=== PATIENT | female | born 1965 | race Caucasian/White ===

== ENCOUNTER 2016-10-19 18:46 | Emergency (ER) | payer OTHER ==
[~2016-10-19] VITALS: Ht 149.9 cm; Wt 45.0 kg
[~2016-10-19 18:46] MED LIST: ZOFR4TAB3 SL
[2016-10-19 18:48] VITALS: BP 103/66; PULSE 99; RESP 14; TEMP 101.7; O2SAT 96
[2016-10-19] MEDS ORDERED: OSEL75 PO (19:44)
[2016-10-19] MEDS ORDERED: AZIT250T3 PO (19:44)
[2016-10-19] MEDS: ALBUTEROL SULFATE 90 MCG/ACT HFA 8 GM INHALER INH ONE ×2 (19:45→20:02)
[2016-10-19] MEDS ORDERED: IBUPROFEN 600 MG TAB PO ONE (19:45)
[2016-10-19] MEDS ORDERED: AZITHROMYCIN 250 MG TAB PO ONE (19:45)
[2016-10-19] MEDS ORDERED: OSELTAMIVIR PHOSPHATE 75 MG CAP PO ONE (19:45)
--- NOTE | 2016-10-19 19:45 | PD ---
HPI Chief Complaint: Cold / Flu Symptoms Time Seen by Provider: 19:25 Travel History International Travel<30 days: No Contact w/Intl Traveler<30days: No Traveled to known affect area: No History of Present Illness HPI 51-year-old female arrives following about 12 hours of fever and chills. She's had a productive cough. She describes a headache. She notes her sister and her son have the flu. Her sister has a pneumonia. Her symptoms began after she left here having visited with here with her son. She's had no vomiting. Severity is moderate. PFSH Past Medical History Immunizations Current: Yes ?: Not : 4 Para: 2 Miscarriage: 1 : 1 Past Surgical History Eye Surgery: Yes ( AGE 7 ) Social History Alcohol Use: Yes (OCC) Tobacco Use: Yes (PK/DAY) Substance Use: Yes (MARIJUANA OCC) Allergies-Medications (Allergen,Severity, Reaction): Coded Allergies: Biaxin (Verified Allergy, Intermediate, 10/19/16) Reported Meds & Prescriptions Reported Meds & Active Scripts Active Azithromycin 250 Mg Tab 250 Mg PO DAILY 4 Days Tamiflu (Oseltamivir Phosphate) 75 Mg Cap 75 Mg PO BID 5 Days Review of Systems Except as stated in HPI: all other systems reviewed are Neg General / Constitutional: Positive: Fever Respiratory: Positive: Cough Physical Exam Narrative GENERAL: 51-year-old female pleasant no acute distress speaking full sentences SKIN: Focused skin assessment warm/dry. HEAD: Atraumatic. Normocephalic. EYES: Pupils equal and round. No scleral icterus. No injection or drainage. ENT: No nasal bleeding or discharge. Mucous membranes pink and moist. Posterior oropharynx widely patent. NECK: Trachea midline. No JVD. CARDIOVASCULAR: Regular rate and rhythm. No murmur appreciated. RESPIRATORY: No accessory muscle use. Clear to auscultation. Breath sounds equal bilaterally. Trace occasional expiratory wheeze. GASTROINTESTINAL: Abdomen soft, non-tender, nondistended. Hepatic and splenic margins not palpable. MUSCULOSKELETAL: No obvious deformities. No clubbing. No cyanosis. No edema. NEUROLOGICAL: Awake and alert. No obvious cranial nerve deficits. Motor grossly within normal limits. Normal speech. PSYCHIATRIC: Appropriate mood and affect; insight and judgment normal. Data Data Last Documented VS Vital Signs Date Time Temp Pulse Resp B/P Pulse Ox O2 Delivery O2 Flow Rate FiO2 10/19/16 19:07 20 10/19/16 18:48 101.7 99 103/66 96 Vital signs reviewed Orders Influenzae A/B Antigen (10/19/16 19:03) Oseltamivir (Tamiflu) (10/19/16 19:45) Ibuprofen (Motrin) (10/19/16 19:45) Azithromycin (Zithromax) (10/19/16 19:45) Albuterol Hfa Inh (Proair Hfa Inh) (10/19/16 19:45) MDM Medical Decision Making Medical Screen Exam Complete: Yes Emergency Medical Condition: Yes Differential Diagnosis Influenza, bacterial pneumonia, viral pneumonia, nonspecific viral syndrome, bronchitis Narrative Course Numerically the patient meets sepsis criteria. She is very well-appearing and has no significant past medical history aside from smoking. A sepsis bundle in this scenario is considered reasonably safely deferrable. The patient appears sufficiently responsible and iNformed to return as needed. we'll provide azithromycin, Tamiflu and Motrin. As I have observed several times, flu assay is negative despite the consolation of symptoms essentially the same as seen with multiple other patients with exact same symptoms with positive fluid assays. In this scenario a false negative is of concern such that coverage with Tamiflu is reasonable. Patient is agreeable with plan which was discussed in great detail with her. Diagnosis Primary Impression: Viral syndrome Additional Impression: Cough Referrals: DR DOMINGUEZ 2 days Additional Instructions: You have a choice when it comes to health care, and we are glad that you chose [facility]. Hopefully, we have met your expectations on today's visit. You are welcome to return to [facility] at any time, as we are committed to meeting the health care needs of our community. Med/Other Pt SpecificInfo: Prescription(s) given Scripts Azithromycin 250 Mg [id number] Mg PO DAILY 4 Days Ref 0 Prov:Ralph Jimenez MD 10/19/16 Oseltamivir (Tamiflu)75 Mg Cap75 Mg PO BID 5 Days Ref 0 Prov:Ralph Jimenez MD 10/19/16 Disposition: 01 DISCHARGE HOME Condition: Stable Ralph Jimenez MD October 19, 2016 19:44
[2016-10-19] MEDS ORDERED: ALBUTEROL SULFATE 90 MCG/ACT HFA 18 GM INHALER INH ONE (20:15)
== END 2016-10-19 20:22 | disposition home or self-care (01) ==
LOC: NEPE 18:46
DX: B34.9 Viral infection, unspecified (principal); R05 Cough; F17.210 Nicotine dependence, cigarettes, uncomplicated
CPT/HCPCS: 87804; 99283